=== PATIENT | male | born 1955 | race Caucasian/White ===

== ENCOUNTER 2018-08-08 09:31 | Day surgery (SDC) | payer BC ==
[~2018-08-08] VITALS: Ht 177.8 cm; Wt 87.3 kg
[~2018-08-08 09:31] MED LIST: CALCA500CH; NASACORT10.8 ML; PROBIOTIC1 EAC1
[2018-08-08] MEDS ORDERED: BENADRYL25 MG PO (09:57)
[2018-08-08] MEDS ORDERED: OMEPRAZOLE20 MG PO (09:57)
== END 2018-08-08 11:19 | disposition home or self-care (01) ==
LOC: ORSCSDS 09:31
PROVIDERS: Internal Medicine Gastroenterology
PROC: 0DB58ZX Excision of Esophagus, Via Natural or Artificial Opening Endoscopic, Diagnostic (ICD-10-PCS; principal; 2018-08-08 10:45)
DX: K22.70 Barrett's esophagus without dysplasia (principal)
CPT/HCPCS: 88305; J2704; J7120

== ENCOUNTER 2020-08-07 08:47 | Day surgery (SDC) | payer BC ==
[~2020-08-07] VITALS: Ht 177.8 cm; Wt 86.2 kg
[~2020-08-07 08:47] MED LIST changes: +BENADRYL25 MG PO; +OMEPRAZOLE20 MG PO
--- NOTE | 2020-08-07 09:26 | NUR ---
08/07/20 0926 Rebecca Heath FIRST IV IN RIGHT HAND BLEW SECOND IV IN RIGHT WRIST BLEW THIRD IV IV IN RIGHT AC WORKED
== END 2020-08-07 11:13 | disposition home or self-care (01) ==
LOC: ORSCSDS 08:47
PROVIDERS: Internal Medicine Gastroenterology
PROC: 0DJD8ZZ Inspection of Lower Intestinal Tract, Via Natural or Artificial Opening Endoscopic (ICD-10-PCS; principal; 2020-08-07 10:00)
DX: Z12.11 Encounter for screening for malignant neoplasm of colon (principal); Z86.010 Personal history of colon polyps; G47.30 Sleep apnea, unspecified; K22.70 Barrett's esophagus without dysplasia; Z79.899 Other long term (current) drug therapy
CPT/HCPCS: J2704; J7120

== ENCOUNTER 2024-05-31 13:06 | Day surgery (SDC) | payer MEDICARE, BC ==
[~2024-05-31] VITALS: Ht 175.3 cm; Wt 87.5 kg
[2024-05-31] VITALS (11 sets, daily range): BP systolic 134–159; BP diastolic 94–107
[~2024-05-31 13:06] MED LIST changes: +DOXY100 PO; +LANS30EC PO
[2024-05-31] MEDS ORDERED: Lactated Ringer's 1,000 ML IV SCH (13:25)
[2024-05-31] MEDS ORDERED: Bupivacaine 0.5% HCl 5 MG/ML 30MLVIAL ONE (13:32)
[2024-05-31] MEDS ORDERED: FentaNYL Citrate 50 MCG/ML 2 ML Injection ONE (13:54)
[2024-05-31] MEDS ORDERED: Midazolam HCl 1MG / ML 2ML Vial ONE (13:54)
[2024-05-31] MEDS ORDERED: propofoL 20 ML IV ONE (13:54)
[2024-05-31] MEDS ORDERED: Rocuronium Bromide 10 MG/ML 5ML Injection IV ONE (13:55)
[2024-05-31] MEDS ORDERED: Dexamethasone Sod Phos 10 MG/ML 1ML VIAL ONE (13:55)
[2024-05-31] MEDS ORDERED: FentaNYL Citrate 50 MCG/ML 2 ML Injection IV PRN ×2 (14:05→14:15)
[2024-05-31] MEDS ORDERED: HYDROmorphone HCl/Pf 1MG SYR IV PRN ×2 (14:10)
[2024-05-31] MEDS ORDERED: Labetalol HCL 5 MG/ML 4ML Injection (Single Dose) IV PRN (14:10)
[2024-05-31] MEDS ORDERED: Albuterol 2.5 MG/3 ML VIAL INH PRN (14:10)
[2024-05-31] MEDS ORDERED: Atropine Sulfate 0.1 MG/ML 10ML SYR IV PRN (14:10)
[2024-05-31] MEDS ORDERED: ePHEDrine Sulfate 50 MG/ML 1ML Injection IV PRN (14:10)
[2024-05-31] MEDS ORDERED: Ondansetron HCl 2 MG / ML 2ML Vial IV PRN (14:10)
[2024-05-31] MEDS ORDERED: HYDROmorphone HCl/Pf 1MG SYR ONE (14:27)
[2024-05-31] MEDS ORDERED: Ondansetron HCl 2 MG / ML 2ML Vial ONE (15:04)
[2024-05-31] MEDS ORDERED: Ketorolac Tromethamine 30mg Vial ONE (15:04)
[2024-05-31] MEDS ORDERED: HYDROcodone 5-APAP 325 TAB PO PRN (16:15)
--- NOTE | 2024-05-31 16:50 | NUR ---
DISCHARGE NOTE PT A&OX4, BREATHING RA, TOLERATING PO INTAKE, PO PAIN MEDICATION GIVEN PER MD ORDERS, AT BEDSIDE. Patient up to Ambulate independently. Gait steady. PT DRESSED INDEPENDENTLY. Discharge instructions reviewed with patient. Patient verbalizes understanding. Copy given to patient to take home. Dressing to procedure site clean, dry, intact with no visible drainage, swelling, erythema or bruising noted. Discharged via wheelchair to private car for ride home.
== END 2024-05-31 16:50 | disposition home or self-care (01) ==
LOC: ORSCMMR 13:06 → ORD 15:00 → ORSCMMR 15:00
PROVIDERS: Surgery
PROC: 8E0W4CZ Robotic Assisted Procedure of Trunk Region, Percutaneous Endoscopic Approach (ICD-10-PCS; principal; 2024-05-31 15:00)
PROC: 0YU54JZ Supplement Right Inguinal Region with Synthetic Substitute, Percutaneous Endoscopic Approach (ICD-10-PCS; principal; 2024-05-31 15:00)
DX: K40.90 Unilateral inguinal hernia, without obstruction or gangrene, not specified as recurrent (principal); Z79.899 Other long term (current) drug therapy
CPT/HCPCS: A9270; C1781; J1100; J1171; J1885; J2250; J2405; J2704; J3010; J7120

== ENCOUNTER 2024-06-18 10:56 | Day surgery (SDC) | payer MEDICARE, BC ==
[~2024-06-18] VITALS: Ht 175.3 cm; Wt 87.2 kg
[~2024-06-18 10:56] MED LIST changes: +Lactated Ringer's 1,000 ML IV ONE; +propofoL 50 ML IV ONE
[2024-06-18] MEDS ORDERED: Lactated Ringer's 1,000 ML IV ONE (12:48)
[2024-06-18 14:27] VITALS: BP 118/95
--- NOTE | 2024-06-18 14:32 | NUR ---
06/18/24 1432 Digna Tuttle PT BIT HIS LIP DURNING THE UPPER ENDOSCOPY, IN STEP DOWN THE PT REPORTED IT DID NOT HURT HE JUST FELT LIKE THERE WAS A CANKER SORE ON HIS BOTTOM LIP. PT SHOWED THIS RN HIS BOTTOM LIP AND THERE WAS 2 SMALL RED SPOTS THAT WERE NOT BLEEDING. PT REPORTED HAVING NO OTHER PAIN OR NAUSEA.
== END 2024-06-18 14:02 | disposition home or self-care (01) ==
LOC: ORSCSDS 10:56
PROVIDERS: Internal Medicine Gastroenterology
PROC: 0DB58ZX Excision of Esophagus, Via Natural or Artificial Opening Endoscopic, Diagnostic (ICD-10-PCS; principal; 2024-06-18 12:30)
DX: K22.70 Barrett's esophagus without dysplasia (principal); K44.9 Diaphragmatic hernia without obstruction or gangrene; Z79.899 Other long term (current) drug therapy
CPT/HCPCS: 88305; 88312; J2704; J7120